=== PATIENT | male | born 1945 | race Caucasian/White ===

== ENCOUNTER 2023-05-08 12:41 | Outpatient (CLI) | payer MEDICARE, SELFPAY ==
--- NOTE | ~2023-05-08 | XR_ITS ---
AP view of the pelvis and AP and lateral views of the bilateral hips Clinical history: Pain Findings: No acute fracture or dislocation is seen. There is moderate to severe bilateral hip joint o steoarthritic. Soft tissues are unremarkable. Impression: Moderate to severe bilateral hip joint osteoarthritis. Reviewed, dictated and finalized at location . STMENT EXAMINER Impression: Moderate to severe bilateral hip joint osteoarthritis.
--- NOTE | ~2023-05-08 | XR_ITS ---
Right Knee Technique: AP and lateral views were obtained. Clinical History: Pain Findings: No fracture or dislocation is seen. Osseous alignment is anatomic. Minimal degenerative spu rring noted. Soft tissues are unremarkable. No joint effusion is seen. Impression: Minimal degenerative spurring. Reviewed, dictated and finalized at location . DEVELOPER Impression: Minimal degenerative spurring.
--- NOTE | ~2023-05-08 | XR_ITS ---
Left Knee Technique: AP and lateral views were obtained. Clinical History: Pain Findings: No fracture or dislocation is seen. Osseous alignment is anatomic. Minimal degenerative spu rring noted. Soft tissues are unremarkable. No joint effusion is seen. Impression: Minimal degenerative spurring. Reviewed, dictated and finalized at location . PER GUN OPERATOR Impression: Minimal degenerative spurring.
== END 2023-05-08 12:42 | disposition home or self-care (01) ==
PROVIDERS: PCP Nurse Practitioner Family; Visit Provider Nurse Practitioner Family
DX: G89.29 Other chronic pain (principal); M25.561 Pain in right knee; M25.562 Pain in left knee; M16.0 Bilateral primary osteoarthritis of hip
CPT/HCPCS: 73521; 73560

== ENCOUNTER 2023-06-25 13:19 | Outpatient (CLI) | payer MEDICARE, SELFPAY ==
--- NOTE | ~2023-06-25 | XR_ITS ---
EXAMINATION: XR lg joint inject/asp w image DATE: 06/25/2023 14:31 INDICATION: Unilateral primary osteoarthritis, right hip. TECHNIQUE: A time-out was performed to verify the patient's name, date of , and procedure to b e performed. The procedure including the risks, benefits, and alternatives was discussed with the pat ient. Risks discussed included bleeding and infection. The patient understood the risks and agreed to proceed. The skin overlying the right hip joint was prepped and draped in usual sterile fashion. A nesthetic was administered with 1% lidocaine subcutaneously. A 22 G needle was advanced under fluoro scopic guidance into the joint. Subsequently, injectate consisting of 4 mm 0.5% bupivacaine and 1 mL 80 mg/mL Depo-Medrol was instilled. The needle was removed and the entry site was cleaned and dress ed. There were no immediate complications. Fluoroscopy exposure time was 0.1 minutes. The total numb er of images was 1. FINDINGS: Real-time fluoroscopy demonstrates the needle in the right hip joint. Patient's pain prior to procedure:08/26. Patient's pain following the procedure: 06/26. IMPRESSION: 1. Fluoroscopy guided right hip joint injection of local anesthetic and steroid with decrease in the patient's presenting pain. Reviewed, dictated and finalized at location A.
== END 2023-06-25 13:20 | disposition home or self-care (01) ==
LOC: ANHIMG 13:20
PROVIDERS: PCP Nurse Practitioner Family; Visit Provider Orthopaedic Surgery
DX: M16.11 Unilateral primary osteoarthritis, right hip (principal)
CPT/HCPCS: 20610; 77002; J1010